=== PATIENT | female | born 1950 | race Caucasian/White ===

== ENCOUNTER 2020-10-16 14:31 | Outpatient (CLI) | payer MEDICARE, SELFPAY ==
[2020-10-16 16:35] LABS: Iron 37 ug/dL (37-170)
[2020-10-16 17:17] LABS: Ferritin 4.97 ng/mL (11.1-264); Percent Iron Saturation 8 % (20-50)
== END 2020-10-16 14:32 | disposition home or self-care (01) ==
PROVIDERS: PCP Nurse Practitioner Family; Visit Provider Internal Medicine Gastroenterology
DX: D64.9 Anemia, unspecified (principal)
CPT/HCPCS: 36415; 82728; 83540; 83550

== ENCOUNTER 2024-04-07 07:02 | Day surgery (SDC) | payer MEDICARE, SELFPAY ==
[2024-03-01 15:27] VITALS: BMI 29.7
[2024-03-29 09:41] VITALS: BMI 29.5
[2024-04-07 07:17] VITALS: BP 141/81; PULSE 76; RESP 15; TEMP 37.3; O2SAT 98
[2024-04-07] MEDS: LACTATED RINGERS 1,000 ML 150 ML IV CONT (07:38)
--- NOTE | 2024-04-07 07:48 | P.PNAN_ITS ---
Anes - Initial Pre Proc Eval Procedure: Operation Date: 04/07/24 08:30 Proposed Procedures p Diagnostic Colonoscopy - Remi Dickson MD Date/Time: 04/07/24 07:48 Surgeon: Remi Dickson MD Pre Op Diagnosis: Iron Deficient Anemia Patient Data Age: 74 Gender: F Height: 1.63 m Weight: 76.4 kg Last Vital Signs Temp 37.3 C 04/07/24 07:17 Pulse 76 04/07/24 07:17 Resp 15 04/07/24 07:17 BP 141/81 H 04/07/24 07:17 Pulse Ox 98 04/07/24 07:17 O2 Del Method Room Air 04/07/24 07:17 Allergies Allergy/AdvReac Type Severity Reaction Status Date / Time Penicillins Allergy Unknown RASH Verified 04/07/24 07:16 Sulfa (Sulfonamide Allergy Unknown WELTS Verified 04/07/24 07:16 Antibiotics) ezetimibe AdvReac Unknown DIARRHEA Verified 04/07/24 07:16 Home Medications Medication Instructions Recorded Confirmed Type pitavastatin calcium 2 mg tablet 2 mg PO DAILY 10/16/20 04/07/24 History (Livalo) ferrous sulfate 325 mg (65 mg See Rx Instructions .Route 05/10/21 04/07/24 Rx iron) tablet .COMPLEX #60 tabs amlodipine 2.5 mg tablet 2.5 mg PO DAILY 03/26/24 04/07/24 History olmesartan 20 1 tablet PO DAILY 03/26/24 04/07/24 History mg-hydrochlorothiazide 12.5 mg tablet potassium chloride 10 mEq 30 meq PO DAILY 03/26/24 04/07/24 History tablet,extended release solifenacin 10 mg tablet 10 mg PO DAILY 03/26/24 04/07/24 History Patient hx anesthesia problems: none Family hx anesthesia problems: none Results Review: All pre-operative results and documents have been reviewed as part of the pre- operative evaluation. COUNTS INCLUDE 234 BEDS AT THE [facility] Past Medical History Medical History Hyperlipidemia Hypertension Social History Social History Smoking status: Never smoker Alcohol intake: never Substance use: never Substance use type: does not use Living arrangements: with family Occupation/Education: retired Spiritual care concerns: No Anes - Eval Final PreProcedure Day of Procedure 04/07/24 07:48 Patient weight: overweight Heart: regular rate and rhythm Lungs: clear to auscultation Airway: Mallampati scale class II Neurological: alert and oriented Last oral intake: >/= 8 hours ASA classification: II Emergent: no Anesthetic plan: proceed Anesthesia type and monitoring: general GIVS and standard monitoring Results Review: All pre-operative results and documents have been reviewed as part of the pre- operative evaluation. Informed Consent: The patient's anesthetic plan and its attendant risks and benefits were discussed with the patient/family/POA. Questions were solicited and answers provided to the satisfaction of the patient/family/POA.
--- NOTE | 2024-04-07 08:29 | PM.HPGS ---
History of Present Illness History of Present Illness Consent: Risks, benefits, and alternatives have been discussed and questions answered. Patient agrees to proceed with procedure. Chief complaint: History of colon polyps Narrative: Maranda Nunez is a 74 year old female presents for colonoscopy. Patient has a history of adenomatous colon polyp removed in 2019. Patient reports her current weight appetite and is are normal. Patient denies abdominal pain. Family history noncontributory. Previously patient was anemic. She reports recent CBC is within normal limits. Review of Systems Review of Systems: All systems reviewed & are unremarkable except as noted in HPI and below PMFSH Past Medical History Medical History Hyperlipidemia Hypertension Social History Social History Smoking status: Never smoker Alcohol intake: never Substance use: never Substance use type: does not use Living arrangements: with family Occupation/Education: retired Spiritual care concerns: No Meds Home Medications and Allergies Home Medications Medication Instructions Recorded Confirmed Type pitavastatin calcium 2 mg tablet 2 mg PO DAILY 10/16/20 04/07/24 History (Livalo) ferrous sulfate 325 mg (65 mg See Rx Instructions .Route 05/10/21 04/07/24 Rx iron) tablet .COMPLEX #60 tabs amlodipine 2.5 mg tablet 2.5 mg PO DAILY 03/26/24 04/07/24 History olmesartan 20 1 tablet PO DAILY 03/26/24 04/07/24 History mg-hydrochlorothiazide 12.5 mg tablet potassium chloride 10 mEq 30 meq PO DAILY 03/26/24 04/07/24 History tablet,extended release solifenacin 10 mg tablet 10 mg PO DAILY 03/26/24 04/07/24 History Allergies Allergy/AdvReac Type Severity Reaction Status Date / Time Penicillins Allergy Unknown RASH Verified 04/07/24 07:16 Sulfa (Sulfonamide Allergy Unknown WELTS Verified 04/07/24 07:16 Antibiotics) ezetimibe AdvReac Unknown DIARRHEA Verified 04/07/24 07:16 Vital Signs Vital Signs - 24 hr 04/07/24 07:17 Temperature 99.1 F Pulse Rate 76 Respiratory Rate 15 Blood Pressure 141/81 H Pulse Oximetry 98 Oxygen Delivery Room Air Exam Narrative: Physical exam reveals patient to be alert. Vital signs stable. HEENT exam is unremarkable. Patient is anicteric. Lungs auscultation and percussion is without murmur or extra sounds. Abdomen bowel sounds are present soft nontender with no organomegaly. Digital external rectal exam normal. Assessment and Plan Assessment and plan (1) History of colon polyps: Code(s): Z86.010 - Personal history of colonic polyps Status: Acute Assessment and Plan: Has a history of adenomatous colon polyp. Plan for surveillance colonoscopy at 5 year intervals.
[2024-04-07 08:54] VITALS: BP 113/52; PULSE 67; RESP 14; O2SAT 97
--- NOTE | 2024-04-07 09:01 | WPDANESPN ---
Anes - Prog Note Post-Op Date/Time: 04/07/24 09:01 Cardiovascular status: normal Respiratory status: normal Airway patency: baseline Mental status: baseline Post-Op hydration status: normal Vital Signs: Last Vital Signs Temp 37.3 C 04/07/24 07:17 Pulse 76 04/07/24 07:17 Resp 15 04/07/24 07:17 BP 141/81 H 04/07/24 07:17 Pulse Ox 98 04/07/24 07:17 O2 Del Method Room Air 04/07/24 07:17 Pain Score (VAS): 0 I/O: Intake & Output 04/06/24 04/07/24 04/07/24 23:59 07:59 15:59 Intake Total 400 Balance 400 Post-procedural complaints: none Patient Feedback: Patient satisfied with anesthetic care.
[2024-04-07 09:04] VITALS: BP 109/50; PULSE 65; RESP 16; O2SAT 96
[2024-04-07 09:14] VITALS: BP 117/55; PULSE 60; RESP 16; O2SAT 98
== END 2024-04-07 09:40 | disposition home or self-care (01) ==
PROVIDERS: PCP Nurse Practitioner Family; Visit Provider Internal Medicine Gastroenterology
PROC: 0DJD8ZZ Inspection of Lower Intestinal Tract, Via Natural or Artificial Opening Endoscopic (ICD-10-PCS; CPT 45378; principal; 2024-04-07 08:30)
DX: Z86.010 Personal history of colon polyps (principal); K57.30 Diverticulosis of large intestine without perforation or abscess without bleeding; K64.8 Other hemorrhoids
CPT/HCPCS: 45378